=== PATIENT | male | born 1975 | race Caucasian/White ===

== ENCOUNTER 2016-08-27 13:23 | Emergency (ER) | payer MEDICAID | END 2016-08-27 15:25 | disposition left against medical advice (07) | LOC: ED 15:19 | DX: Z76.1 Encounter for health supervision and care of foundling (principal); Z53.21 Procedure and treatment not carried out due to patient leaving prior to being seen by health care provider ==

== ENCOUNTER 2017-08-09 00:47 | Emergency (ER) | payer MEDICAID ==
[~2017-08-09] VITALS: Ht 170.2 cm; Wt 80.1 kg
[2017-08-09] MEDS ORDERED: SODIUM CHLORIDE 0.9% 1,000ML IVBOLUS ONE (02:00)
[2017-08-09 02:14] LABS: BASOPHILS # (AUTO) 0.06 x10^3/uL (0-0.1); BASOPHILS % (AUTO) 0 % (0-1); EOSINOPHILS # (AUTO) 0.04 x10^3/uL (0-0.4); EOSINOPHILS % (AUTO) 0 % (1-7); LYMPHOCYTES # (AUTO) 1.97 x10^3/uL (1-3.4); LYMPHOCYTES % (AUTO) 12 % (22-44); MD NO; MEAN CORPUSCULAR HEMOGLOBIN 28.6 pg (27.5-34.5); MEAN CORPUSCULAR HGB CONC 33.3 g/dL (33.2-36.2); MONOCYTES # (AUTO) 1.24 x10^3/uL (0.2-0.8); MONOCYTES % (AUTO) 8 % (2-9); NEUTROPHILS # (AUTO) 12.64 x10^3/uL (1.8-6.8); NEUTROPHILS % (AUTO) 79 % (42-75); PLATELET COUNT 302 x10^3/uL (130-400); RED BLOOD COUNT 4.38 x10^6/uL (4.38-5.82); RED CELL DISTRIBUTION WIDTH 14.8 % (9.4-14.8)
[2017-08-09 02:23] LABS: ANION GAP 7 mmol/L (5-15); CALCIUM 8.7 mg/dL (8.5-10.1); CHLORIDE 102 mmol/L (98-107)
[2017-08-09 02:24] LABS: CREATININE 0.67 mg/dL (0.7-1.3)
[2017-08-09] MEDS ORDERED: CEFTRIAXONE 1,000 MG IM ONE (03:00)
[2017-08-09] MEDS ORDERED: CEFTRIAXONE 1,000 MG ONE (03:45)
[2017-08-09 04:09] VITALS: BP 132/62
== END 2017-08-09 04:11 | disposition left against medical advice (07) ==
LOC: ED 02:00
DX: L03.317 Cellulitis of buttock (principal); L02.31 Cutaneous abscess of buttock
CPT/HCPCS: 36415; 80048; 82040; 85025; 87070; 87077; 87186; 87205; 96372; 99285; J0696; 10060

== ENCOUNTER 2017-08-27 11:52 | Emergency (ER) | payer MEDICAID ==
[~2017-08-27] VITALS: Ht 177.8 cm; Wt 79.0 kg
[2017-08-27] MEDS ORDERED: CEFTRIAXONE 1,000 MG IM ONE (12:30)
[2017-08-27] MEDS ORDERED: LIDOCAINE 2%, 20ML SQ ONE (12:30)
[2017-08-27] MEDS ORDERED: VANCOMYCIN PER PHARMACY IV ONE (13:00)
[2017-08-27] MEDS ORDERED: SODIUM CHLORIDE 0.9% 1,000ML IVBOLUS ONE (13:00)
[2017-08-27] MEDS ORDERED: CEFTRIAXONE PMX 1GM/50ML 50 ML ONE (13:09)
[2017-08-27 13:18] LABS: MEAN CORPUSCULAR HEMOGLOBIN 28.2 pg (27.5-34.5); MEAN CORPUSCULAR HGB CONC 32.8 g/dL (33.2-36.2); MEAN PLATELET VOLUME 7.6 fL (7.4-10.4); PLATELET COUNT 262 x10^3/uL (130-400); RED BLOOD COUNT 4.56 x10^6/uL (4.38-5.82); RED CELL DISTRIBUTION WIDTH 15.1 % (9.4-14.8)
[2017-08-27 13:27] LABS: ALBUMIN 3.1 g/dL (3.4-5.0); ANION GAP 7 mmol/L (5-15); CALCIUM 8.3 mg/dL (8.5-10.1); CHLORIDE 100 mmol/L (98-107); CREATININE 0.87 mg/dL (0.7-1.3)
[2017-08-27] MEDS ORDERED: SODIUM CHLORIDE FLUSH 10ML SYR IVF ONE (14:00)
[2017-08-27] MEDS ORDERED: VANCOMYCIN 1,600 MG in SODIUM CHLORIDE 0.9% 250 ML IV ONE (14:00)
[2017-08-27 14:19] LABS: BASOPHILS # (AUTO) 0.11 x10^3/uL (0-0.1); BASOPHILS % (AUTO) 1 % (0-1); EOSINOPHILS # (AUTO) 0.04 x10^3/uL (0-0.4); EOSINOPHILS % (AUTO) 0 % (1-7); LYMPHOCYTES # (AUTO) 2.19 x10^3/uL (1-3.4); LYMPHOCYTES % (AUTO) 11 % (22-44); MD SCAN; MONOCYTES # (AUTO) 1.53 x10^3/uL (0.2-0.8); MONOCYTES % (AUTO) 8 % (2-9); NEUTROPHILS # (AUTO) 15.37 x10^3/uL (1.8-6.8); NEUTROPHILS % (AUTO) 80 % (42-75)
[2017-08-27] MEDS ORDERED: MORPHINE SULFATE 4 MG/ML, 1ML ONE (14:40)
[2017-08-27] MEDS ORDERED: ONDANSETRON ODT 4 MG ONE (14:40)
[2017-08-27] MEDS ORDERED: OMNIPAQUE 350 MG/ML, 100ML BOTTLE ONE (14:54)
[2017-08-27] MEDS ORDERED: MORPHINE SULFATE 4 MG/ML, 1ML IVPush PRN (15:00)
[2017-08-27] MEDS ORDERED: ONDANSETRON ODT 4 MG PO ONE (15:00)
[2017-08-27] MEDS ORDERED: LIDOCAINE-MPF 2% ,5ML ONE ×2 (15:30)
[2017-08-27 16:12] VITALS: BP 124/85
== END 2017-08-27 16:15 | disposition left against medical advice (07) ==
LOC: ED 16:09
DX: L02.31 Cutaneous abscess of buttock (principal); D72.829 Elevated white blood cell count, unspecified; F11.129 Opioid abuse with intoxication, unspecified
CPT/HCPCS: 10060; 36415; 72193; 80048; 82040; 83605; 85025; 87040; 96365; 96366; 96372; 96375; 99285; J3370; J3490; J7030; J7050; Q0162; Q9967

== ENCOUNTER 2018-06-03 22:02 | Emergency (ER) | payer MEDICAID ==
[~2018-06-03] VITALS: Ht 177.8 cm; Wt 83.0 kg
[2018-06-03] MEDS ORDERED: LIDOCAINE 2%, 20ML SQ ONE (23:30)
[2018-06-03] MEDS ORDERED: LIDOCAINE-MPF 1%, 5ML ONE (23:46)
[2018-06-03] MEDS ORDERED: LIDOCAINE-MPF 1%, 2ML ONE (23:47)
--- NOTE | 2018-06-04 | NUR ---
RECEIVED REPORT FROM AARON NICHOLSON TO ASSUME PT. CARE AT THIS TIME. NADN. PT. RESTING ON GURNEY WITH EYES CLOSED. EVEN, NON-LABORED RESPIRATIONS NOTED.
[2018-06-04] MEDS ORDERED: CEFTRIAXONE 1,000 MG IM ONE (00:30)
[2018-06-04] MEDS ORDERED: CEFTRIAXONE 1,000 MG ONE (00:58)
[2018-06-04 01:07] VITALS: BP 126/74
--- NOTE | 2018-06-04 01:20 | NUR ---
PT. HAS DECLINED TO STAY IN THE HOSPITAL RECOMMENDED BY NEHEMIAS. PT. SIGNED AMA FORM. PT. MEDICATED PER MAR PRIOR TO LEAVING; STATES "I HAVE TAKEN ROCEPHIN BEFORE AND I AM NOT ALLERGIC TO IT". REQUESTED PT. TO STAY FOR OBS AFTER IM INJECTIONS BUT PT. DECLINED HE HAS RECEVIED IT BEFORE. PT. ABLE TO FULLY DRESS SELF AND AMBULATE TO D/C DESK WITH STEADY GAIT. PT. ENCOURAGED TO COME BACK IF PAIN/SWELLING/REDNESS/DRAINAGE GETS WORSE OR FOR ANY OTHER CONCERNS; PT. AGREEABLE TO THIS. PT. IS A&O X 4 AND ABLE TO MAKE OWN DECISIONS.
== END 2018-06-04 01:24 | disposition home or self-care (01) ==
LOC: ED 22:32
DX: L03.116 Cellulitis of left lower limb (principal); Z72.9 Problem related to lifestyle, unspecified; F11.10 Opioid abuse, uncomplicated; Z88.6 Allergy status to analgesic agent
CPT/HCPCS: 96372; 99283; J0696

== ENCOUNTER 2019-04-05 17:48 | Emergency (ER) | payer MEDICAID ==
--- NOTE | 2019-04-05 18:26 | NUR ---
NAX1
--- NOTE | 2019-04-05 18:30 | NUR ---
NA X2
--- NOTE | 2019-04-05 18:39 | NUR ---
NA X3
== END 2019-04-05 20:10 | disposition left against medical advice (07) ==
LOC: ED 20:04
DX: L02.415 Cutaneous abscess of right lower limb (principal); Z53.21 Procedure and treatment not carried out due to patient leaving prior to being seen by health care provider

== ENCOUNTER 2019-07-11 22:18 | Emergency (ER) | payer MEDICAID ==
[~2019-07-11] VITALS: Ht 180.3 cm; Wt 79.0 kg
[2019-07-11 22:21] VITALS: BP 123/87
[2019-07-11] MEDS ORDERED: VANCOMYCIN PER PHARMACY MC ONE (23:30)
[2019-07-11] MEDS ORDERED: LIDOCAINE-MPF 2% ,5ML SQ ONE (23:30)
[2019-07-11] MEDS ORDERED: PIPERACILLIN/TAZO/PMX 3.375GM 50 ML IVPB ONE (23:30)
[2019-07-11] MEDS ORDERED: PIPERACILLIN/TAZO/PMX 3.375GM 50 ML ONE (23:31)
[2019-07-11] MEDS ORDERED: LIDOCAINE-MPF 2% ,5ML ONE (23:31)
[2019-07-11] MEDS ORDERED: VANCOMYCIN 1,600 MG in SODIUM CHLORIDE 0.9% 250 ML IV ONE (23:45)
--- NOTE | 2019-07-11 23:54 | NUR ---
Pt states he doesn't IV because "they can never get it." Pt informed of risk, talked to pt. Pt states staff has one attempt and then he is leaving.
[2019-07-11 23:58] LABS: BASOPHILS # (AUTO) 0.06 x10^3/uL (0-0.1); BASOPHILS % (AUTO) 1 % (0-1); EOSINOPHILS # (AUTO) 0.03 x10^3/uL (0-0.4); EOSINOPHILS % (AUTO) 0 % (1-7); LYMPHOCYTES % (AUTO) 15 % (22-44); MD NO; MEAN CORPUSCULAR HGB CONC 32.6 g/dL (33.2-36.2); MEAN CORPUSCULAR VOLUME 85.8 fL (81-97); MEAN PLATELET VOLUME 7.3 fL (7.4-10.4); MONOCYTES # (AUTO) 1.33 x10^3/uL (0.2-0.8); MONOCYTES % (AUTO) 10 % (2-9); NEUTROPHILS # (AUTO) 10.32 x10^3/uL (1.8-6.8); NEUTROPHILS % (AUTO) 75 % (42-75); PLATELET COUNT 390 x10^3/uL (130-400); RED BLOOD COUNT 4.78 x10^6/uL (4.38-5.82); RED CELL DISTRIBUTION WIDTH 14.3 % (9.4-14.8)
[2019-07-11 23:59] LABS: ALANINE AMINOTRANSFERASE 38 U/L (12-78); ALBUMIN 2.9 g/dL (3.4-5.0); ANION GAP 6 mmol/L (5-15); CALCIUM 8.2 mg/dL (8.5-10.1); CHLORIDE 97 mmol/L (98-107); CREATININE 0.91 mg/dL (0.7-1.3)
[2019-07-12 00:02] LABS: ALKALINE PHOSPHATASE 77 U/L (45-117); BILIRUBIN,TOTAL 0.5 mg/dL (0.2-1.0); TOTAL PROTEIN 8.8 g/dL (6.4-8.2)
--- NOTE | 2019-07-12 00:20 | NUR ---
Pt adamant about leaving against medical advice, despite possible complications. Pt signed ama form, given prescription by MD and ambulated to waiting room.
== END 2019-07-12 00:22 | disposition left against medical advice (07) ==
LOC: ED 23:41
DX: L02.415 Cutaneous abscess of right lower limb (principal); L03.115 Cellulitis of right lower limb; M60.9 Myositis, unspecified; F15.129 Other stimulant abuse with intoxication, unspecified; Z72.9 Problem related to lifestyle, unspecified
CPT/HCPCS: 10060; 36415; 80053; 85025; 87040; 99283

== ENCOUNTER 2021-02-01 01:11 | Emergency (ER) | payer MEDICAID ==
[~2021-02-01] VITALS: Ht 179.1 cm; Wt 83.0 kg
--- NOTE | 2021-02-01 03:03 | NUR ---
PT. TO ROOM FROM LOBBY AT THIS TIME.
[2021-02-01] MEDS ORDERED: LIDOCAINE-MPF 1%, 5ML INFIL ONE (03:30)
[2021-02-01] MEDS ORDERED: LIDOCAINE-MPF 1%, 5ML ONE ×2 (04:03)
--- NOTE | 2021-02-01 04:18 | NUR ---
ELLIE RIDDLE IN TO PERFORM I&D.
[2021-02-01 04:52] VITALS: BP 99/58
== END 2021-02-01 04:53 | disposition home or self-care (01) ==
LOC: ED 04:03
DX: L02.416 Cutaneous abscess of left lower limb (principal); F17.210 Nicotine dependence, cigarettes, uncomplicated
CPT/HCPCS: 10060; 99283; 99406